=== PATIENT | male | born 1950 ===

== ENCOUNTER 2022-05-19 15:58 | Outpatient (REF) | payer MEDICARE, SELFPAY ==
[2022-05-19 22:05] LABS: COMMENT (LAB VIEW ONLY) 32.97 mg/dL
== END 2022-05-19 15:59 | disposition home or self-care (01) ==
LOC: NCHCN 15:58
PROVIDERS: PCP Nurse Practitioner Family; Visit Provider Nurse Practitioner Family
DX: E11.59 Type 2 diabetes mellitus with other circulatory complications (principal)
CPT/HCPCS: 82043; 82570

== ENCOUNTER 2022-08-13 16:14 | Outpatient (REF) | payer MEDICARE, SELFPAY ==
[2022-08-13 17:18] LABS: HCT 43.2 % (40.0-50.0); HGB 14.4 g/dL (13.5-17.5); MCH 30.3 pg (27.0-33.0); MCHC 33.3 % (32.0-36.0); MCV 91 fL (80-95); MPV 12.4 fL (8.0-11.0); Platelet Count 155 10^3/uL (130-400); RBC 4.76 10^6/uL (4.36-5.78); RDW-SD 43.4 fL; WBC 7.61 10^3/uL (4.4-10.8)
[2022-08-13 17:36] LABS: ALT 42 U/L (16-63); AST 29 U/L (15-37); Albumin 4.6 g/dL (3.4-5.0); Alkaline Phosphatase 81 U/L (46-116); Anion Gap 9.7 mmol/L (3-11); BUN 15 mg/dL (7-18); Bilirubin, Total 0.8 mg/dL (0.2-1.0); CO2 25.3 mmol/L (21.0-32.0); CREATININE 0.9 mg/dL (0.70-1.30); Calcium 9.9 mg/dL (8.5-10.1); Calculated LDL 48 mg/dL (<100); Chloride 106 mmol/L (98-107); Cholesterol 119 mg/dL (<200); Estimated GFR 92.45 (mL/min/1.73m2); Glucose 155 mg/dL (74-106); HDL Cholesterol 52 mg/dL (40-60); Potassium 4.5 mmol/L (3.5-5.1); Sodium 141 mmol/L (136-145); Total Protein 7.8 g/dL (6.4-8.2); Triglyceride 99 mg/dL (<150)
== END 2022-08-13 16:15 | disposition home or self-care (01) ==
LOC: NCHCN 16:14
PROVIDERS: PCP Nurse Practitioner Family; Visit Provider Nurse Practitioner Family
DX: K76.0 Fatty (change of) liver, not elsewhere classified (principal); E11.59 Type 2 diabetes mellitus with other circulatory complications; I25.10 Atherosclerotic heart disease of native coronary artery without angina pectoris
CPT/HCPCS: 80053; 80061; 85027; 83036

== ENCOUNTER 2023-04-29 12:25 | Outpatient (REF) | payer MEDICARE, SELFPAY ==
[2023-04-29 21:28] LABS: Microalb ug/mg Crea 9.3 ug/mg Cr
== END 2023-04-29 12:26 | disposition home or self-care (01) ==
LOC: NCHCN 12:25
PROVIDERS: PCP Nurse Practitioner Family; Visit Provider Nurse Practitioner Family
DX: E11.59 Type 2 diabetes mellitus with other circulatory complications (principal)
CPT/HCPCS: 82043; 82570

== ENCOUNTER 2023-07-29 13:36 | Outpatient (REF) | payer MEDICARE, SELFPAY ==
[2023-07-29 21:57] LABS: Hemoglobin A1C 6.2 % (<5.7)
[2023-07-29 22:06] LABS: ALT 29 U/L (16-63); AST 18 U/L (15-37); Albumin 4.3 g/dL (3.4-5.0); Alkaline Phosphatase 93 U/L (46-116); Anion Gap 11.3 mmol/L (3-11); BUN 15 mg/dL (7-18); Bilirubin, Total 0.4 mg/dL (0.2-1.0); CO2 27.7 mmol/L (21.0-32.0); CREATININE 0.9 mg/dL (0.70-1.30); Calcium 10.3 mg/dL (8.5-10.1); Calculated LDL 39 mg/dL (<100); Chloride 102 mmol/L (98-107); Cholesterol 106 mg/dL (<200); Estimated GFR 91.88 (mL/min/1.73m2); Glucose 142 mg/dL (74-106); HDL Cholesterol 53 mg/dL (40-60); Potassium 4.2 mmol/L (3.5-5.1); Sodium 141 mmol/L (136-145); Total Protein 7.8 g/dL (6.4-8.2); Triglyceride 72 mg/dL (<150); Vitamin B12 239 pg/mL (193-986)
== END 2023-07-29 13:37 | disposition home or self-care (01) ==
LOC: NCHCN 13:36
PROVIDERS: PCP Nurse Practitioner Family; Visit Provider Nurse Practitioner Family
DX: E11.9 Type 2 diabetes mellitus without complications (principal)
CPT/HCPCS: 80053; 80061; 82607; 83036

== ENCOUNTER 2024-02-10 08:41 | Outpatient (REF) | payer MEDICARE, SELFPAY ==
[2024-02-10 15:54] LABS: ALT 30 U/L (16-63); AST 19 U/L (15-37); Albumin 4.1 g/dL (3.4-5.0); Alkaline Phosphatase 100 U/L (46-116); Anion Gap 7.7 mmol/L (3-11); BUN 13 mg/dL (7-18); Bilirubin, Total 0.67 mg/dL (0.2-1.0); CO2 28.3 mmol/L (21.0-32.0); CREATININE 0.9 mg/dL (0.70-1.30); Calcium 9.5 mg/dL (8.5-10.1); Calculated LDL 37 mg/dL (<100); Chloride 105 mmol/L (98-107); Cholesterol 104 mg/dL (<200); Estimated GFR 91.31 (mL/min/1.73m2); Glucose 141 mg/dL (74-106); HDL Cholesterol 56 mg/dL (40-60); Sodium 141 mmol/L (136-145); Total Protein 7.4 g/dL (6.4-8.2); Triglyceride 57 mg/dL (<150); Vitamin B12 225 pg/mL (193-986)
== END 2024-02-10 08:42 | disposition home or self-care (01) ==
LOC: NCHCN 08:41
PROVIDERS: PCP Nurse Practitioner Family; Visit Provider Nurse Practitioner Family
DX: E11.9 Type 2 diabetes mellitus without complications (principal)
CPT/HCPCS: 80053; 80061; 82607

== ENCOUNTER 2024-02-15 12:19 | Outpatient (REF) | payer MEDICARE, SELFPAY ==
[2024-02-16 19:31] LABS: PSA, Screening 5.9 ng/mL (<=6.5)
== END 2024-02-15 12:20 | disposition home or self-care (01) ==
LOC: NCHCN 12:19
PROVIDERS: PCP Nurse Practitioner Family; Visit Provider Nurse Practitioner Family
DX: Z12.5 Encounter for screening for malignant neoplasm of prostate (principal)
CPT/HCPCS: 84153

== ENCOUNTER 2024-05-25 14:39 | Outpatient (REF) | payer MEDICARE, SELFPAY ==
[2024-05-25 21:25] LABS: COMMENT (LAB VIEW ONLY) 149.21 mg/dL; Microalb ug/mg Crea 9.5 ug/mg Cr
== END 2024-05-25 14:40 | disposition home or self-care (01) ==
LOC: NCHCN 14:39
PROVIDERS: PCP Nurse Practitioner Family; Visit Provider Nurse Practitioner Family
DX: E11.9 Type 2 diabetes mellitus without complications (principal)
CPT/HCPCS: 82043; 82570

== ENCOUNTER 2024-11-17 10:29 | Outpatient (REF) | payer MEDICARE, SELFPAY ==
[2024-11-17 18:11] LABS: HCT 40.8 % (40.0-50.0); HGB 13.9 g/dL (13.5-17.5); MCH 30.5 pg (27.0-33.0); MCHC 34.1 % (32.0-36.0); MCV 90 fL (80-95); MPV 11.6 fL (8.0-11.0); Platelet Count 157 10^3/uL (130-400); RBC 4.55 10^6/uL (4.36-5.78); RDW 12.8 % (11.8-14.1); RDW-SD 42.2 fL; WBC 6.74 10^3/uL (4.4-10.8)
[2024-11-17 18:40] LABS: ALT 28 U/L (16-63); AST 27 U/L (15-37); Albumin 4.6 g/dL (3.4-5.0); Alkaline Phosphatase 127 U/L (46-116); Anion Gap 10.2 mmol/L (3-11); BUN 16 mg/dL (7-18); Bilirubin, Total 0.8 mg/dL (0.2-1.0); CO2 25.8 mmol/L (21.0-32.0); CREATININE 0.8 mg/dL (0.70-1.30); Calcium 9.9 mg/dL (8.5-10.1); Calculated LDL 39 mg/dL (<100); Chloride 104 mmol/L (98-107); Cholesterol 107 mg/dL (<200); Estimated GFR 94.03 (mL/min/1.73m2); Glucose 132 mg/dL (74-106); HDL Cholesterol 60 mg/dL (>or=40); Potassium 4.2 mmol/L (3.5-5.1); Sodium 140 mmol/L (136-145); Total Protein 7.9 g/dL (6.4-8.2); Triglyceride 41 mg/dL (<150); Vitamin B12 201 pg/mL (193-986)
[2024-11-17 23:20] LABS: PSA, Screening 6.3 ng/mL (<=6.5)
== END 2024-11-17 10:30 | disposition home or self-care (01) ==
LOC: NCHCN 10:29
PROVIDERS: PCP Nurse Practitioner Family; Visit Provider Nurse Practitioner Family
DX: I10 Essential (primary) hypertension (principal); Z12.5 Encounter for screening for malignant neoplasm of prostate; Z51.81 Encounter for therapeutic drug level monitoring; Z13.220 Encounter for screening for lipoid disorders
CPT/HCPCS: 80053; 80061; 84153; 85027; 82607